=== PATIENT | female | born 1990 | race Hispanic/Latino ===

== ENCOUNTER 2016-09-21 01:34 | Observation (INO) | payer SELFPAY ==
[2016-09-21 01:44] VITALS: BP 116/72; PULSE 80; RESP 16; TEMP 98; O2SAT 98
[2016-09-21] MEDS ORDERED: Sodium Chloride 0.9% 1,000 ML IV STA (02:15)
--- NOTE | 2016-09-21 03:14 | ED PDOC ---
HPI: Psych/Substance Abuse Time Seen by Provider: 09/21/16 02:18 Chief Complaint (Nursing): Alcohol Ingestion Chief Complaint (Provider): intoxication Additional Complaint(s): 26yo F in ED bought to ED by EMS for intoxication-slurred speech, unstable gait. Past Medical History Reviewed: Historical Data, Nursing Documentation, Vital Signs Vital Signs: Last Vital Signs Temp 98.0 F 09/21/16 01:42 Pulse 80 09/21/16 01:42 Resp 16 09/21/16 01:42 BP 116/72 09/21/16 01:42 Pulse Ox 98 09/21/16 01:42 - Medical History PMH: No Chronic Diseases - Family History Family History: States: No Known Family Hx - Allergies Allergies/Adverse Reactions: Allergies Allergy/AdvReac Type Severity Reaction Status Date / Time No Known Allergies Allergy Verified 09/21/16 01:45 Review of Systems ROS Statement: Except As Marked, All Systems Reviewed And Found Negative Psych: Positive for: Other (intoxication) Physical Exam - Reviewed Nursing Documentation Reviewed: Yes Vital Signs Reviewed: Yes - Physical Exam Appears: Positive for: No Acute Distress. Negative for: Non-toxic (intoxication ) Skin: Positive for: Normal Color, Warm, DRY Cardiovascular/Chest: Positive for: Regular Rate, Rhythm Respiratory: Positive for: CNT, Normal Breath Sounds Neurologic/Psych: Positive for: Alert, Oriented - ECG O2 Sat by Pulse Oximetry: 98 - Progress ED Course And Treament: FS and alcohol. Medical Decision Making Medical Decision Making: pt will be d/c home clincially sober ED OBSERVATION Discharge: Yes Date of observation admission: 09/21/16 Time of observation admission: 03:15 - Observation admission statement Patient is being placed in observation because:: intoxication - Goals of Observation Goals of observation are:: sobriety - Progress Note Progress Note: 09/21/16 05:44 well appearing, stable gait. will take cab home Disposition - Clinical Impression Clinical Impression: Alcohol abuse with intoxication - Patient ED Disposition Is Patient to be Admitted: No - Disposition Disposition: Routine/Home Disposition Time: 05:44 Condition: IMPROVED
== END 2016-09-21 05:44 | disposition home or self-care (01) ==
LOC: H.ER 01:34 → H.EROBSV 03:16
PROVIDERS: ADMIT Emergency Medicine; ATTEND Emergency Medicine
DX: F10.129 Alcohol abuse with intoxication, unspecified (principal)
CPT/HCPCS: 82948; 96360; 99281; G0378; J7040